=== PATIENT | female | born 1970 | race Caucasian/White ===

== ENCOUNTER → 2024-09-01 08:04 | Outpatient (REF) | payer OTHER, SELFPAY ==
[2024-09-01 09:36] LABS: Urine Albumin 1+ (Neg - Trace); Urine Bilirubin Negative (Negative); Urine Character Clear (Clear); Urine Color Yellow; Urine Glucose Negative (Negative); Urine Ketone Negative (Negative); Urine Leukocyte Negative (Negative); Urine Nitrite Negative (Negative); Urine Occult Blood Negative (Negative); Urine Urobilinogen Negative (Neg - 1+)
[2024-09-01 09:45] LABS: % Basophils 0.6 % (0-2); % Eosinophils 4.3 % (0-6); % Immature Granulocytes 0.2 % (0-0.5); % Lymphocytes 30.6 % (20.5-51.1); % Neutrophils 55.3 % (42.2-75.2); ALT (SGPT) 19 U/L (0-35); AST (SGOT) 24 U/L (14-36); Absolute Eosinophils 0.2 10^3/uL (0-0.7); Absolute Lymphocytes 1.4 10^3/uL (1.2-3.4); Absolute Monocytes 0.4 10^3/uL (0.1-0.6); Absolute Neutrophils 2.6 10^3/uL (1.4-6.5); Albumin 4.2 g/dl (3.5-5.0); Alkaline Phosphatase 86 U/L (38-126); Blood Urea Nitrogen 16 mg/dl (7-17); Calcium 9.6 mg/dl (8.4-10.2); Carbon Dioxide 25 mmol/L (22-30); Chloride 108 mmol/L (98-107); Glucose 100 mg/dl (70-99); HDL Cholesterol 70 mg/dl; Hematocrit 36.1 % (37.0-47.0); Hemoglobin 12.4 g/dL (12.0-16.0); LDL Cholesterol, Calculated 135 mg/dl; Mean Corp Hgb Conc. 34.3 g/dL (33.0-37.0); Mean Corpuscular Hgb 30.1 pg (27.0-31.0); Mean Corpuscular Volume 87.6 fL (81.0-99.0); Mean Platelet Volume 9.9 fL (7.4-10.4); Nucleated Red Blood Cells % 0 %; Platelet Count 251 10^3/uL (130-400); Potassium 4.4 mmol/L (3.5-5.1); Red Blood Cell Count 4.12 10^6/uL (4.20-5.40); Red Cell Dist. Width 12.5 % (11.5-14.5); Sodium 140 mmol/L (135-145); Total Bilirubin 0.4 mg/dl (0.2-1.3); Total Cholesterol 235 mg/dl (50-199); Total Protein 7.1 g/dl (6.3-8.2); Triglyceride 153 mg/dl (10-149); Very Low Density Lipoprotein 30 mg/dl (0-30); White Blood Cell Count 4.7 10^3/uL (4.8-10.8); eGFR > 60.00
[2024-09-01 10:12] LABS: TSH Reflex To Free T4 1.69 uIU/ml (0.47-4.68)
[2024-09-01 11:31] LABS: Urine Urothelial Cell 0-2 /LPF (FEW)
[2024-09-01 11:32] LABS: Urine Red Blood Cell 0-2 /HPF (0-2)
[2024-09-01 11:33] LABS: Urine Bacteria Few (Negative)
[2024-09-01 11:34] LABS: Urine Mucus Few
== END ==
LOC: HWLAB 08:04
PROVIDERS: ATTENDING PHYSICIAN Nurse Practitioner Adult Health
DX: Z00.01 Encounter for general adult medical examination with abnormal findings (principal)
CPT/HCPCS: 36415; 80053; 80061; 81003; 81015; 84443; 85025